=== PATIENT | female | born 2000 | race Hispanic/Latino ===

== ENCOUNTER 2019-03-21 14:48 | Outpatient (CLI) | payer OTHER ==
--- NOTE | 2019-03-21 16:01 | ULT ---
Obstetric sonogram HISTORY: Second trimester gestation. evaluation. FINDINGS: Single intrauterine gestation in cephalic presentation. Grade 0 placenta is posterior. No e vidence of previa. Cervix is closed and 3.4 cm. Amniotic fluid is within normal limits. spine and kidneys are intact as visualized. Four-chamber heart shows motion at 152 bpm. Three-vessel cord s hows a normal insertion. No gross intracranial abnormalities are demonstrated. Measurements are as follows: Biparietal diameter 20 weeks 3 days. Head circumference 20 weeks 0 days. Abdominal circumference 19 weeks 0 days. Femur length 19 weeks 5 days. Estimated gestational age based on today's sonogram 19 weeks 6 days. IMPRESSION: Single intrauterine gestation. Estimated gestational age 19 weeks 6 days. No evidence of complication.
== END 2019-03-21 14:49 | disposition home or self-care (01) ==
LOC: BICULT 14:48
PROVIDERS: ATTEND Nurse Practitioner
DX: Z34.02 Encounter for supervision of normal first pregnancy, second trimester (principal); Z3A.19 19 weeks gestation of pregnancy
CPT/HCPCS: 76805